=== PATIENT | male | born 1950 | race Caucasian/White ===

== ENCOUNTER 2018-01-25 08:07 | Day surgery (SDC) | payer OTHER ==
[2018-01-19 10:05] VITALS: BMI 25.4
[2018-01-25] MEDS ORDERED: Gentamicin 160 MG in Sodium Chloride 0.9% 100 ML IVPB ONE (10:10)
[2018-01-25] MEDS ORDERED: cefTRIAXone 1 gm 1 GM/100 ML BAG IVPB ONE (10:12)
[2018-01-25] MEDS ORDERED: Lidocaine 2% Jelly (Uro-Jet) ONE (10:17)
[2018-01-25] MEDS ORDERED: Propofol 10 mg/ml Inj (20 ML) ONE (10:24)
[2018-01-25] MEDS ORDERED: Morphine 4 MG/ML VIAL IV PRN (10:28)
[2018-01-25] MEDS ORDERED: Midazolam 2 MG/2 ML VIAL ONE (10:30)
[2018-01-25] MEDS ORDERED: Lactated Ringer's 1,000 ML IV ONE (11:00)
[2018-01-25 12:21] VITALS: O2SAT 98
[2018-01-25 14:29] VITALS: BP 98/53; PULSE 69; RESP 20; TEMP 97.5
--- NOTE | 2018-01-25 19:25 | OP ---
PROCEDURE DATE: 01/25/2018 PREOPERATIVE DIAGNOSIS: Elevated prostate specific antigen, 4.25. POSTOPERATIVE DIAGNOSIS: Elevated prostate specific antigen, 4.25. PROCEDURE: Transrectal ultrasound diagnostic, transrectal ultrasound guidance and prostatic biopsies. SURGEON: Lincoln Maddox MD PREOPERATIVE DIAGNOSIS: Elevated prostate specific antigen, 4.25. POSTOPERATIVE DIAGNOSIS: Elevated prostate specific antigen, 4.25. PROCEDURE: Transrectal ultrasound, diagnostic; transrectal ultrasound guidance; and prostatic biopsies. SURGEON: Lincoln Maddox MD DESCRIPTION OF PROCEDURE: The patient was brought to the operating room. Prior to placing him under anesthesia, he was told that in the event that he has heavy postop bleeding, fever, or chills, he is to call the office immediately and/or go to the emergency room. He also confirmed via a matlab developer that he has not taken any NSAIDs or aspirin in the last 10 days. He was placed under anesthesia in lithotomy position and 160 mg of gentamicin and 1 gm of Rocephin were given IV piggyback for antibiotic prophylaxis. The rectum was cleansed with Betadine. The ultrasound transducer was placed in the rectum. The prostate itself was smooth and homogeneous. Total volume was 82 mL. We now used transducer to guide the biopsy instrument and divided the prostate into 6 sections, obtaining 2 specimens per section. We then maintained pressure for 5 minutes with the transducer to promote hemostasis and upon removal, there was no bleeding noted. The patient tolerated the procedure well. Lincoln Maddox MD
== END 2018-01-25 13:52 | disposition home or self-care (01) ==
LOC: C.SDS 08:07
PROVIDERS: ATTEND Urology
DX: R97.20 Elevated prostate specific antigen [PSA] (principal)
CPT/HCPCS: 10022; 82948; 88305; J0696; J1580; J7120